=== PATIENT | male | born 1985 | race African-American/Black ===

== ENCOUNTER 2018-02-16 20:44 | Emergency (ER) | payer SELFPAY, OTHER ==
[2018-02-16] MEDS: HYDROCODONE/APAP (5/325) TAB PO (22:37)
== END 2018-02-16 22:43 | disposition home or self-care (01) ==
LOC: FTE 20:44
DX: K08.89 Other specified disorders of teeth and supporting structures (principal)
CPT/HCPCS: 99284